=== PATIENT | female | born 1985 | race Caucasian/White ===

== ENCOUNTER → 2020-06-21 14:25 | Outpatient (BNVA) | payer MEDICAID, SELFPAY | PROVIDERS: Family Provider Family Medicine; PCP Family Medicine; Visit Provider Emergency Medicine | DX: Z20.828 Contact with and (suspected) exposure to other viral communicable diseases (principal); R06.02 Shortness of breath | CPT/HCPCS: 87635 ==

== ENCOUNTER 2022-11-16 21:43 | Inpatient (IN) | payer MEDICAID, SELFPAY ==
[2022-11-16 21:44] VITALS: BP 103/66; PULSE 86; RESP 20; TEMP 36; O2SAT 100; BMI 24.3
--- NOTE | 2022-11-16 21:50 | ECG_ITS ---
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 Measurements Intervals [place] Rate: 80 P: 54 TN: 195 QRS: 58 QRSD: 103 T: 48 QT: 379 QTc: 437 Interpretive Statements SINUS RHYTHM POSSIBLE RIGHT VENTRICULAR CONDUCTION DELAY [RSR (QR) IN V1/V2] No previous ECG available for comparison Electronically Signed On 11-16-2022 22:41:03 CDT by Edgardo Bravo M.D. [id number]
--- NOTE | 2022-11-16 21:50 | ED_ITS ---
HPI - Overdose General: Chief Complaint: Overdose Stated Complaint: OD Time Seen by Provider: 11/16/22 21:45 Source: patient and EMS Mode of arrival: EMS Limitations: no limitations History of Present Illness: 37-year-old female who states she is drank half a pint of alcohol tonight she states she took 4 gabapentin she believes 300 mg tablets at 730 in attempt to harm herself patient is somnolent here but she will wake up and answer my questions she states that she did this because her children deserve someone better than her. She denies any other ingestion. Review of Systems Const: Denies: fever(s) or chills Eyes: Denies: blurry vision or eye discomfort ENMT: Denies: throat pain or dental pain Card: Denies: chest pain Resp: Denies: dyspnea GI: Denies: abdominal pain, nausea, vomiting or diarrhea : Denies: dysuria Musc: Denies: neck pain or back pain Skin/Breast: Denies: rash Neuro: Denies: headache(s) Psych: Reports: depression and suicidal ideation [facility] ED PFSH: Medical History Chronic back pain Depression Hiatal hernia History of gastric ulcer Hypersomnia Hypothyroidism (acquired) Obesity Surgical History History of 2006,2008,2009,2010 History of esophagogastroduodenoscopy (EGD) (~01/2018) History of Meredith-en-Y gastric bypass (~10/2018) History of tubal ligation (~2012) Family History Denies family history of Anesthesia complication Bleeding disorder Social History Smoking and tobacco status: former smoker Quit status (tobacco): has quit using tobacco Year quit tobacco: 2008 Second hand smoke exposure: No Alcohol intake: never Substance/Drug Use: never Desire information about substance/drug rehabilitation?: No Adopted: No Caregiver/support person: Yes Lives independently: No Household members: family Housing: House Marital status: Highest education level completed: High School Graduate service: No Current occupational status: employed Current occupational exposures/hazards: No Pets and animals: No Leisure activites: exercise Sexually active: Yes Do you think of yourself as: Straight/Heterosexual Current gender identity: Female Desiree/Roman 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 Special desiree needs: No Agree to transfusion: No Financial difficulty paying for basics: Decline to Answer Physical Exam Const: COMMON NORMALS: patient oriented x3 GENERAL APPEARANCE: lethargic and odor of alcohol detected ORIENTATION/CONSCIOUSNESS: Yes lethargic HENMT: COMMON NORMALS: normocephalic and atraumatic HEAD & SCALP: normocephalic and atraumatic Eye: COMMON NORMALS: Equal, round and reactive pupils present and EOMs intact bilaterally PUPIL: Yes Equal, round and reactive pupils present Neck/C-Spine: COMMON NORMALS: full ROM and supple Chest: COMMONS NORMALS: normal inspection of the chest and normal palpation of entire chest wall Resp: COMMON NORMALS: normal respiratory effort, No retractions, No use of accessory muscles and clear to auscultation bilaterally AUSCULTATION: clear to auscultation bilaterally Cardio: COMMON NORMALS: regular rate, regular rhythm and No murmurs present (Cardio) RATE: regular rate RHYTHM: regular rhythm GI: COMMON NORMALS: Normal to inspection, nondistended, normoactive bowel sounds present, Soft to palpation, non-tender and no masses PALPATION: Yes Soft to palpation Extremity: COMMON NORMALS: normal to inspection and full ROM Neuro: COMMON NORMALS: patient oriented x3, moves all extremities and no focal motor deficits SENSORIUM/ORIENTATION: Yes lethargic Psych: COMMON NORMALS: mental status grossly normal, Normal thought process present and cooperative APPEARANCE: Yes disheveled SPEECH: Yes minimal THOUGHT PROCESS: Normal thought process present THOUGHT CONTENT: Yes Suicidality present Skin: COMMON NORMALS: no rashes or lesions noted and no wounds GENERAL SKIN EXAM: no rashes or lesions noted Course Vital Signs: Vital signs: Vital Signs Temperature 96.8 F L 11/16/22 21:44 Pulse Rate 80 11/17/22 00:00 Respiratory Rate 13 11/17/22 00:00 Blood Pressure 103/61 11/17/22 00:00 Pulse Oximetry 100 11/17/22 00:00 Oxygen Delivery Me thod Room Air 11/16/22 22:52 MDM - Overdose Medical Decision Making Patient presents here with alcohol intoxication along with suicidal ideations she is well-appearing now she is awake and alert walking in the room no signs of gabapentin overdose she is medically cleared I spoke to Dr. Fajardo psychiatry and will admit. Medical Records I reviewed the patient's medical records. Lab Data I reviewed the patient's lab results. 11/16/22 20:55 11/16/22 20:55 Laboratory Results WBC 11.2 10^3/uL (4.0-10.0) H 11/16/22 20:55 RBC 3.87 10^6/uL (4.1-5.3) L 11/16/22 20:55 Hgb 11.8 g/dL (11.5-15.3) 11/16/22 20:55 Hct 36.3 % (37.0-47.0) L 11/16/22 20:55 MCV 93.8 fl (81-99) 11/16/22 20:55 MCH 30.5 pg (28.0-34.0) 11/16/22 20:55 MCHC 32.5 g/dL (30.0-36.0) 11/16/22 20:55 RDW 12.2 % (12.1-15.1) 11/16/22 20:55 Plt Count 344 10^3/cmm (130-400) 11/16/22 20:55 MPV 11.2 fL (7.4-10.4) H 11/16/22 20:55 Neut % (Auto) 56.1 % 11/16/22 20:55 Lymph % (Auto) 34.1 % 11/16/22 20:55 [place] % (Auto) 8.3 % 11/16/22 20:55 Eos % (Auto) 0.3 % 11/16/22 20:55 Baso % (Auto) 1.0 % 11/16/22 20:55 Neut # (Auto) 6.27 10^3/uL (1.8-7.7) 11/16/22 20:55 Lymph # (Auto) 3.8 10^3/uL (0.8-4.8) 11/16/22 20:55 [place] # (Auto) 0.9 10^3/uL (0.2-0.9) 11/16/22 20:55 Eos # (Auto) 0.0 10^3/uL (0.0-0.8) 11/16/22 20:55 Baso # (Auto) 0.1 10^3/uL (0.0-0.1) 11/16/22 20:55 Nucleated RBC % (auto) 0 % 11/16/22 20:55 Nucleated RBCs # 0.0 /100WBC 11/16/22 20:55 Specimen Type Arterial 11/16/22 21:50 Sample Site Radial, right 11/16/22 21:50 ABG pH 7.29 (7.35-7.45) L 11/16/22 21:50 ABG pCO2 43.8 mmHg (35-45) 11/16/22 21:50 ABG pO2 85.4 mmHg (80.0-100.0) 11/16/22 21:50 ABG HCO3 21.0 mmol/L (22-26) L 11/16/22 21:50 ABG Base Excess -5.5 mmol/L (-2.0-2.0) L 11/16/22 21:50 Brooks Test Pos 11/16/22 21:50 Hematocrit 34.6 % (37-47) L 11/16/22 21:50 O2 Delivery Device None 11/16/22 21:50 FiO2 21.0 % 11/16/22 21:50 Floral Designer Salesperson ID [email or web address] 11/16/22 21:50 Sodium 139 mmol/L (136-145) 11/16/22 20:55 Potassium 3.0 mmol/L (3.5-5.1) L 11/16/22 20:55 Chloride 106 mmol/L (98-107) 11/16/22 20:55 Carbon Dioxide 19 mmol/L (22-29) L 11/16/22 20:55 Anion Gap 17.0 (5-19) 11/16/22 20:55 BUN 10 mg/dL (6-20) 11/16/22 20:55 Creatinine 0.6 mg/dL (0.5-0.9) 11/16/22 20:55 GFR Calculation 112.5 mL/min (90-130) 11/16/22 20:55 Glucose 77 mg/dL (65-115) 11/16/22 20:55 Calculated Osmolality 286 mOsm/kg (285-295) 11/16/22 20:55 Calcium 8.0 mg/dL (8.5-10.5) L 11/16/22 20:55 Total Bilirubin 0.3 mg/dL (0.15-1.2) 11/16/22 20:55 AST 22 U/L (0-32) 11/16/22 20:55 ALT 18 U/L (0-33) 11/16/22 20:55 Alkaline Phosphatase 80 U/L (35-105) 11/16/22 20:55 Total Protein 6.7 g/dL (6.6-8.7) 11/16/22 20:55 Albumin 4.0 g/dL (3.5-5.2) 11/16/22 20:55 Globulin 2.7 g/dL (1.3-4.6) 11/16/22 20:55 HCG, Qual Negative (Negative) 11/16/22 21:58 Urine Color Yellow (Yellow) 11/16/22 21:58 Urine Appearance Sl hazy (CLEAR) A 11/16/22 21:58 Urine pH 5 (5-7) 11/16/22 21:58 Ur Specific [place] 1.020 (1.005-1.030) 11/16/22 21:58 Urine Protein Trace (Negative) 11/16/22 21:58 Urine Glucose (UA) Norm (Normal) 11/16/22 21:58 Urine Ketones Negative (Negative) 11/16/22 21:58 Urine Blood 2+ (Negative) H 11/16/22 21:58 Urine Nitrate Positive (Negative) H 11/16/22 21:58 Urine Bilirubin Neg (Negative) 11/16/22 21:58 Urine Urobilinogen Norm mg/dL (Negative) 11/16/22 21:58 Ur Leukocyte Esterase Negative (Negative) 11/16/22 21:58 Urine RBC 0-4 /hpf (0-2) H 11/16/22 21:58 Urine WBC 0-4 /hpf (0-5) H 11/16/22 21:58 Ur Squamous Epith Cells 0-4 /hpf (0-5) H 11/16/22 21:58 Amorphous Sediment Not Reportable 11/16/22 21:58 Urine Bacteria 3+ /hpf (NONE) H 11/16/22 21:58 Salicylates < 0.3 mg/dL (3-10) L 11/16/22 20:55 Urine Opiates Screen Negative ng/mL (Negative) 11/16/22 21:58 Acetaminophen < 5.0 ug/mL (10-30) L 11/16/22 20:55 Ur Barbiturates Screen Negative ng/mL (Negative) 11/16/22 21:58 Ur Phencyclidine Scrn Negative ng/mL (Negative) 11/16/22 21:58 Ur Amphetamines Screen Positive ng/mL (Negative) H 11/16/22 21:58 U Benzodiazepines Scrn Negative ng/mL (Negative) 11/16/22 21:58 Urine Cocaine Screen Negative ng/mL (Negative) 11/16/22 21:58 U Marijuana (THC) Screen Negative ng/mL (Negative) 11/16/22 21:58 Ethyl Alcohol 215 mg/dL (0-10) H 11/16/22 20:55 EKG Data EKG 1: I personally reviewed and interpreted this EKG as follows: EKG interpretation date: 11/16/22 EKG interpretation time: 21:50 Interpretation: nsr hr [address] or t wave abnormalities qrs 103 414 Discharge Plan Discharge Condition: Stable Prescriptions: No Action topiramate [Topamax] 50 mg tablet 50 mg PO BID amitriptyline 25 mg tablet 25 mg PO QDAY cyclobenzaprine 5 mg tablet 5 mg PO BID PRN fluticasone propionate 50 mcg/actuation blister with device 1 inh INHALATION BID PRN fluoxetine 40 mg capsule 40 mg PO QAM levothyroxine 50 mcg capsule 50 mcg PO QDAY biotin 10,000 mcg capsule 100,000 mcg PO DAILY doxycycline hyclate 100 mg tablet 100 mg PO BID 7 Days Qty: 14 0RF albuterol sulfate 90 mcg/actuation HFA aerosol inhaler 2 puff inhalation Q6H PRN (Reason: shortness of breath or wheezing) Qty: 8.5 0RF prednisone 10 mg tablet 30 mg PO DAILY 5 Days Qty: 15 0RF Referrals: Eliud Olmstead [Primary Care Provider] - Coding Level of Care Code ED Boiling Off Winder for Jasmin Vega
[2022-11-16 21:56] VITALS: PULSE 86; RESP 16; O2SAT 100
[2022-11-16 22:00] LABS: ABG PCO2 43.8 mmHg (35-45); ABG PH Result 7.29 (7.35-7.45); Arterial Blood Gas Hematocrit 34.6 % (37-47); Base Excess ABG -5.5 mmol/L (-2.0-2.0); Blood Gas Allen Test Pos; Blood Gas Sample Site Radial, right; Blood Gas Sample Type Arterial; PO2 ABG 85.4 mmHg (80.0-100.0)
[2022-11-16 22:07] VITALS: BP 92/57; PULSE 86; RESP 13; O2SAT 99
[2022-11-16 22:07] LABS: Basophils # 0.1 10^3/uL (0.0-0.1); Eosinophils % 0.3 %; Hematocrit 36.3 % (37.0-47.0); Hemoglobin 11.8 g/dL (11.5-15.3); Lymphocytes # 3.8 10^3/uL (0.8-4.8); Lymphocytes % 34.1 %; Mean Corpuscular HGB Conc 32.5 g/dL (30.0-36.0); Mean Corpuscular Hemoglobin 30.5 pg (28.0-34.0); Mean Corpuscular Volume 93.8 fl (81-99); Mean Platelet Volume 11.2 fL (7.4-10.4); Monocytes # 0.9 10^3/uL (0.2-0.9); Monocytes % 8.3 %; Neutrophils # 6.27 10^3/uL (1.8-7.7); Neutrophils % 56.1 %; Nucleated Red Blood Cells % 0 %; Platelet Count 344 10^3/cmm (130-400); Red Blood Count 3.87 10^6/uL (4.1-5.3); Red Cell Distribution Width 12.2 % (12.1-15.1); White Blood Count 11.2 10^3/uL (4.0-10.0)
[2022-11-16 22:12] LABS: HCG Qualitative Urine. Negative (Negative)
[2022-11-16 22:20] LABS: Amphetamines Screen Urine Positive (Negative); Barbiturates Screen Urine Negative (Negative); Benzodiazepines Screen Urine Negative (Negative); Cocaine Screen Urine Negative (Negative); Opiate Screen Urine Negative (Negative); PCP Screen Urine Negative (Negative); THC Screen Urine Negative (Negative)
[2022-11-16 22:34] LABS: Alanine Aminotransferase 18 U/L (0-33); Alcohol Level 215 mg/dL (0-10); Alkaline Phosphatase 80 U/L (35-105); Aspartate Amino Transferase 22 U/L (0-32); Blood Urea Nitrogen 10 mg/dL (6-20); Carbon Dioxide 19 mmol/L (22-29); Chloride 106 mmol/L (98-107); Globulin 2.7 g/dL (1.3-4.6); Glomerular Filtration Rate 112.5 mL/min (90-130); Glucose 77 mg/dL (65-115); Osmolality Calculated 286 mOsm/kg (285-295); Sodium 139 mmol/L (136-145); Total Bilirubin 0.3 mg/dL (0.15-1.2); Total Protein 6.7 g/dL (6.6-8.7)
[2022-11-16 22:36] LABS: Acetaminophen < 5.0 ug/mL (10-30); Salicylate < 0.3 mg/dL (3-10)
[2022-11-16 22:37] VITALS: BP 96/53; PULSE 88; RESP 15; O2SAT 99
[2022-11-16 22:49] LABS: Bilirubin Urine Neg (Negative); Blood Urine 2+ (Negative); Glucose Urine UA Norm (Normal); Ketones Urine Negative (Negative); Leukocyte Esterase Urine Negative (Negative); Nitrate Urine Positive (Negative); Protein Urine Trace (Negative); Urine Appearance SL Hazy (CLEAR); Urine Color Yellow (Yellow); Urobilinogen Urine Norm (Negative); pH Urine 5 (5-7)
[2022-11-16 22:50] LABS: Add Urine Culture? Yes; Add Urine Microscopic? YES; Bacteria Urine 3+ /hpf; RBC Urine 0-4 /hpf (0-2); Squamous Epithelial Cell Urine 0-4 /hpf (0-5); WBC Urine 0-4 /hpf (0-5)
[2022-11-16 22:52] VITALS: BP 97/51; PULSE 86; RESP 17; O2SAT 99
[2022-11-16 23:07] VITALS: BP 94/55; PULSE 82; RESP 14; O2SAT 99
[2022-11-17] VITALS: BP 103/61; PULSE 80; RESP 13; O2SAT 100
[2022-11-17 01:35] VITALS: BP 98/64; PULSE 80; RESP 16; O2SAT 98
[2022-11-17 01:53] VITALS: BP 100/67; PULSE 81; RESP 16; TEMP 36.8; O2SAT 100
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
[2022-11-17] MEDS: thiamine 100 mg Tablet PO (09:54)
[2022-11-17] MEDS: folic acid 1 mg Tablet PO (09:54)
[2022-11-17] MEDS: multivitamin therapeutic Tablet 1 TAB PO (09:54)
[2022-11-17] MEDS: acetaminophen 325 mg Tablet 650 MG PO (10:43)
[2022-11-17] MEDS: neomycin-poly-bacitracin oint 28 gm 1 APPLIC TOPICAL (11:20)
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
[2022-11-17 14:00] VITALS: BP 107/65; PULSE 81; RESP 18; TEMP 36.7; O2SAT 100
[2022-11-17 22:00] VITALS: BP 96/60; PULSE 79; RESP 18; TEMP 37; O2SAT 100
[2022-11-18 06:00] VITALS: RESP 15
[2022-11-18 07:52] LABS: Glucose Point of Care 91 mg/dL (70-110)
[2022-11-18] MEDS: multivitamin therapeutic Tablet 1 TAB PO (08:36)
[2022-11-18] MEDS: folic acid 1 mg Tablet PO (08:36)
[2022-11-18] MEDS: thiamine 100 mg Tablet PO (08:36)
[2022-11-18 12:08] LABS: Glucose Point of Care 104 mg/dL (70-110)
[2022-11-18 14:00] VITALS: RESP 17
--- NOTE | 2022-11-18 15:05 | W.PM.NPUPNS ---
Subjective NPU Subjective: Patient presented today reporting that she was feeling a little better. She reports that she spoke with her mother and her mother was saying that there was a chance that she could start a job tomorrow. She continued to downplay the impact of the methamphetamine on her presentation. We did discuss the risk benefits alternatives of restarting Prozac and she understood and agreed to proceed as is documented in this note. She also discussed previously being prescribed Valium but we discussed the fact that given her active addiction and addiction history that use of Valium as an antianxiety agent would not be advised. She identified that she had gastric bypass and continues to report that she does not have a stomach and therefore changes need to be made when medications are prescribed. We agreed we review Dr. Causey charts to identify the current condition of her stomach. Mental Status Exam MSE Comments: This is a well nourished and well developed white female in hospital scrubs with improved grooming and eye contact.? Hair dyed but faded. Hands looking quite cruddy and dirty. No abnormal movements.? Cooperative with exam in mild distress.? Speech was decreased rate and volume.? Mood described as a little better, affect congruent? Thought process mostly organized.? Thought content: Patient denied suicidal or homicidal ideation, there were no delusions reported or noted, she denied any auditory or visual hallucinations.? Attention and concentration were intact and memory appeared unreliable but none were formally tested.? She is alert and oriented x3.? Insight, judgment and impulse control are limited versus impaired. Vitals/I&O/Wt Last Vital Signs Temp 98.6 F 11/17/22 22:00 Pulse 79 11/17/22 22:00 Resp 15 11/18/22 06:00 BP 96/60 11/17/22 22:00 Pulse Ox 100 11/17/22 22:00 O2 Del Method Room Air 11/17/22 22:00 Weight last 48 hrs Weight 72.575 kg Data NPU 11/16/22 20:55 11/16/22 20:55 Micro: Microbiology 11/16/22 21:58 Urine Culture - Preliminary Urine,Clean Catch Gram Negative Rods Microbiology 11/16/22 21:58 Urine,Clean Catch Urine Culture - Preliminary Gram Negative Rods A&P Assessment and plan (1) History of Meredith-en-Y gastric bypass: (2) Anxiety: (3) Depression: (4) PTSD (post-traumatic stress disorder): (5) Alcohol use: Plan This is a 37-year-old white female with a reported history of trauma, depression and anxiety with active alcohol use who presents on a 96-hour hold but denies need for any intervention. 1. Continue current medication. Start Prozac 20 mg daily today but consider increasing the dose depending on concerns about absorption. 2. Encourage individual, group and milieu therapy. 3. Continue every 15 minute checks for safety. 4. Encourage sober living treatment after discharge at the highest level of care to which she is willing to commit. Involuntary Hold Information 96 Hour Hold: 96 Hour Involuntary Admission: Yes Attestations NPU Medical Necessity Statement*: Inpatient hospitalization is medically necessary and the clinically appropriate intervention at this time. We will monitor medications and make changes as indicated. Likely length of stay 3 to 5 days. Coding Level of Care Code Acute Code for Chg Fwd Diagnoses History of Meredith-en-Y gastric bypass Z98.84 Anxiety F41.9 Depression F32.9 PTSD (post-traumatic stress disorder) F43.10 Alcohol use Z78.9
[2022-11-18] MEDS: fluoxetine 20 mg Capsule PO (17:41)
[2022-11-18 22:00] VITALS: RESP 16
[2022-11-19 06:00] VITALS: RESP 16
[2022-11-19 08:29] LABS: Glucose Point of Care 98 mg/dL (70-110)
[2022-11-19] MEDS: folic acid 1 mg Tablet PO (08:57)
[2022-11-19] MEDS: multivitamin therapeutic Tablet 1 TAB PO (08:58)
[2022-11-19] MEDS: thiamine 100 mg Tablet PO (08:58)
[2022-11-19 12:39] LABS: Glucose Point of Care 79 mg/dL (70-110)
[2022-11-19 14:00] VITALS: BP 87/52; PULSE 63; RESP 16; TEMP 36.5; O2SAT 99
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
--- NOTE | 2022-11-19 15:49 | NPU.GN ---
[facility] Group Topic:wood crafting General Mood of Group-patient participated in group by completing the og. Patient was able to complete it very quickly and correctly. Enjoyed the project and wanting to paint it in another group setting
[2022-11-19] MEDS: nicotine 2 mg Gum BUCCAL ×2 (17:16→18:14)
[2022-11-19] MEDS: fluoxetine 20 mg Capsule PO (21:24)
[2022-11-19] MEDS: trazodone 50 mg Tablet PO (21:24)
[2022-11-19 21:34] VITALS: BP 100/70; PULSE 94; RESP 18; TEMP 36.8; O2SAT 100
[2022-11-20 08:31] LABS: Glucose Point of Care 116 mg/dL (70-110)
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
[2022-11-20] MEDS: nicotine 2 mg Gum BUCCAL ×5 (08:45→20:36)
[2022-11-20] MEDS: thiamine 100 mg Tablet PO (08:45)
[2022-11-20] MEDS: multivitamin therapeutic Tablet 1 TAB PO (08:45)
[2022-11-20 12:05] LABS: Glucose Point of Care 94 mg/dL (70-110)
[2022-11-20 13:11] LABS: Glucose Point of Care 94 mg/dL (70-110)
[2022-11-20 14:00] VITALS: BP 105/66; PULSE 74; RESP 18; TEMP 36.7; O2SAT 100
[2022-11-20 17:51] LABS: Glucose Point of Care 123 mg/dL (70-110)
[2022-11-20 20:19] LABS: Glucose Point of Care 100 mg/dL (70-110)
[2022-11-20 20:21] VITALS: BP 99/50; PULSE 91; RESP 18; TEMP 36.7; O2SAT 97
[2022-11-20] MEDS: fluoxetine 20 mg Capsule PO (20:36)
[2022-11-20] MEDS: trazodone 50 mg Tablet PO (20:36)
[2022-11-21 05:17] VITALS: BP 91/58; PULSE 902; RESP 18; TEMP 36.6; O2SAT 97
[2022-11-21 07:52] LABS: Glucose Point of Care 85 mg/dL (70-110)
[2022-11-21] MEDS: nicotine 2 mg Gum BUCCAL ×3 (09:15→14:07)
--- NOTE | 2022-11-21 09:17 | PC.NURSE ---
pt refused medication. at this time.
[2022-11-21] MEDS: acetaminophen 325 mg Tablet 650 MG PO (12:00)
[2022-11-21 12:18] LABS: Glucose Point of Care 127 mg/dL (70-110)
[2022-11-21 14:00] VITALS: BP 96/63; PULSE 80; RESP 18; TEMP 36.6; O2SAT 100
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
[2022-11-21 14:22] VITALS: BP 91/58; PULSE 90; RESP 18; TEMP 36.6; O2SAT 97
--- NOTE | 2022-11-21 15:14 | PC.NURSE ---
written discharge instruction discussed and left with patient. pt states understanding and compliance. pt leaving pov with mother. meds from pharmacy given to patient.
== END 2022-11-21 15:16 | disposition home or self-care (01) | DRG 897 ==
LOC: ER 22:07 → NP 11-17 01:28
PROVIDERS: Admitting Provider Psychiatry & Neurology Psychiatry; Emergency Provider Emergency Medicine; PCP Family Medicine; Visit Provider Psychiatry & Neurology Psychiatry
DX: F10.129 Alcohol abuse with intoxication, unspecified (principal); R45.851 Suicidal ideations; Y90.7 Blood alcohol level of 200-239 mg/100 ml; Z87.891 Personal history of nicotine dependence; F15.90 Other stimulant use, unspecified, uncomplicated; G89.29 Other chronic pain; M54.9 Dorsalgia, unspecified; F32.A Depression, unspecified; E03.9 Hypothyroidism, unspecified; Z98.84 Bariatric surgery status; F41.9 Anxiety disorder, unspecified; F43.10 Post-traumatic stress disorder, unspecified
CPT/HCPCS: 36416; 36600; 80053; 80306; 80307; 81001; 81025; 82803; 82962; 85025; 87077; 87086; 87186; 93005; 96372; 97150; 97165; 99238; 99285; J3411

== ENCOUNTER 2023-09-08 12:48 | Emergency (ER) | payer OTHER, SELFPAY ==
[2023-09-08 12:54] VITALS: BP 128/78; PULSE 97; RESP 16; TEMP 36.6; O2SAT 100
--- NOTE | 2023-09-08 13:16 | PC.PHAR ---
unable to complete med rec- per [facility] mark harden and grader meat jes carranza
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
[2023-09-08] MEDS: iohexol 350 mg/mL 500 mL Btl (per mL) IV (15:21)
[2023-09-08 15:29] LABS: Basophils # 0.1 10^3/uL (0.0-0.1); Basophils % 0.9 %; Eosinophils % 0.4 %; Hematocrit 36.2 % (36-47); Lymphocytes # 1.8 10^3/uL (0.8-4.8); Lymphocytes % 26.2 %; Mean Corpuscular HGB Conc 33.1 g/dL (30-55); Mean Corpuscular Hemoglobin 30.2 pg (27-33); Mean Platelet Volume 10.2 fL (7.4-10.4); Monocytes # 0.5 10^3/uL (0.2-0.9); Monocytes % 6.9 %; Neutrophils # 4.57 10^3/uL (1.8-7.7); Neutrophils % 65.3 %; Nucleated Red Blood Cells % 0 %; Platelet Count 295 10^3/cmm (157-399); Red Blood Count 3.98 10^6/uL (3.85-5.65); Red Cell Distribution Width 12.8 % (12.1-15.1); White Blood Count 6.99 10^3/uL (3.29-11.43)
[2023-09-08 15:43] LABS: Alanine Aminotransferase 13 U/L (0-33); Alcohol Level 112 mg/dL (0-10); Alkaline Phosphatase 77 U/L (35-105); Anion Gap 17.6 (5-19); Aspartate Amino Transferase 24 U/L (0-32); Blood Urea Nitrogen 12 mg/dL (6-20); Calcium 8.1 mg/dL (8.5-10.5); Carbon Dioxide 23 mmol/L (22-29); Chloride 102 mmol/L (98-107); Creatinine Clr Calc Pharmacy 151.3252; Globulin 2.9 g/dL (1.3-4.6); Glomerular Filtration Rate 138.1 mL/min (90-130); Glucose 84 mg/dL (65-115); Osmolality Calculated 287 mOsm/kg (285-295); Potassium 3.6 mmol/L (3.5-5.1); Sodium 139 mmol/L (136-145); Total Bilirubin 0.2 mg/dL (0.15-1.2); Total Protein 6.9 g/dL (6.6-8.7)
[2023-09-08 15:44] LABS: HCG, Serum Qual Negative (Negative)
[2023-09-08 16:58] LABS: Amphetamines Screen Urine Positive (Negative); Barbiturates Screen Urine Negative (Negative); Benzodiazepines Screen Urine Negative (Negative); Cocaine Screen Urine Negative (Negative); Opiate Screen Urine Negative (Negative); PCP Screen Urine Negative (Negative); THC Screen Urine Negative (Negative)
[2023-09-08 17:42] VITALS: BP 108/53; PULSE 92; RESP 16; O2SAT 99
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
== END 2023-09-08 18:08 | disposition home or self-care (01) ==
PROVIDERS: Emergency Provider Emergency Medicine; PCP Family Medicine
DX: F10.129 Alcohol abuse with intoxication, unspecified (principal); Y90.5 Blood alcohol level of 100-119 mg/100 ml; T76.21XA Adult sexual abuse, suspected, initial encounter; Z87.891 Personal history of nicotine dependence
CPT/HCPCS: 70450; 71260; 72125; 74177; 80053; 80306; 80307; 84703; 85025; 99285; Q9967